=== PATIENT | male | born 1990 | race Caucasian/White ===

== ENCOUNTER 2017-09-09 05:02 | Emergency (ER) | payer OTHER ==
[2017-09-09 05:18] VITALS: BP 154/74; PULSE 64; TEMP 98.3; BMI 29.5
[2017-09-09] MEDS ORDERED: IBUPROFEN 400 MG TABLET (FP) PO ONE ×2 (05:41→05:48)
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
== END 2017-09-09 06:07 | disposition home or self-care (01) ==
LOC: JER 05:02
DX: S33.9XXA Sprain of unspecified parts of lumbar spine and pelvis, initial encounter (principal); Y35.891A Legal intervention involving other specified means, law enforcement official injured, initial encounter; Y93.89 Activity, other specified; Y92.9 Unspecified place or not applicable; Y99.0 Civilian activity done for income or pay
CPT/HCPCS: 99281-25

== ENCOUNTER 2018-04-23 03:44 | Emergency (ER) | payer OTHER ==
[2018-04-23 04:28] VITALS: BP 127/73; PULSE 89; TEMP 98.4; BMI 30.7
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
== END 2018-04-23 04:57 | disposition home or self-care (01) ==
LOC: JER 03:44
DX: S60.812A Abrasion of left wrist, initial encounter (principal); S50.812A Abrasion of left forearm, initial encounter; Y35.811A Legal intervention involving manhandling, law enforcement official injured, initial encounter; Y93.89 Activity, other specified; Y92.89 Other specified places as the place of occurrence of the external cause; Y99.0 Civilian activity done for income or pay
CPT/HCPCS: 99281-25

== ENCOUNTER 2018-08-01 12:39 | Emergency (ER) | payer OTHER ==
[2018-08-01 12:57] VITALS: BP 151/73; PULSE 82; TEMP 97.8; BMI 32.1
[2018-08-01] MEDS ORDERED: KETOROLAC TROMETHAMINE 60 MG/2 ML VIAL IM ONE (13:38)
[2018-08-01] MEDS ORDERED: KETOROLAC TROMETHAMINE 60 MG/2 ML VIAL ONE (13:38)
--- NOTE | 2018-08-01 14:00 | PDOC ---
History of Present Illness - General Chief Complaint: Back Pain Stated Complaint: Lower Back pain Time Seen by Provider: 08/01/18 13:05 History Source: Patient - History of Present Illness Occurred: reports: this morning Pain Location: reports: back Past History - Past Medical History Allergies/Adverse Reactions: Allergies Allergy/AdvReac Type Severity Reaction Status Date / Time No Known Allergies Allergy Verified 04/23/18 04:26 Home Medications: Ambulatory Orders Cyclobenzaprine HCl [Flexeril -] 10 mg PO TID #9 tablet 08/01/18 Ibuprofen [Motrin -] 800 mg PO Q6H #30 tablet 08/01/18 COPD: No Other medical history: herniated disc - Immunization History Immunization Up to Date: Yes - Suicide/Smoking/Psychosocial Hx Smoking History: Never smoked Have you smoked in the past 12 months: No Information on smoking cessation initiated: No Hx Alcohol Use: No Drug/Substance Use Hx: No Substance Use Type: None Review of Systems - Review of Systems Constitutional: No: Chills, Fever : No: Burning, Dysuria, Flank Pain, Hematuria Musculoskeletal: Yes: Back Pain Neurological: No: Numbness, Tingling, Weakness *Physical Exam - Vital Signs Last Vital Signs Temp Pulse Resp BP Pulse Ox 97.8 F 82 18 151/73 98 08/01/18 12:54 08/01/18 12:54 08/01/18 12:54 08/01/18 12:54 08/01/18 12:54 - Physical Exam General Appearance: Yes: Appropriately Dressed, Mild Distress HEENT: positive: Normal Voice Neck: positive: Supple Respiratory/Chest: negative: Respiratory Distress Gastrointestinal/Abdominal: positive: Soft. negative: Tender Musculoskeletal: negative: CVA Tenderness, Vertebral Tenderness Extremity: positive: Normal Inspection Integumentary: positive: Dry, Warm Neurologic: positive: Fully Oriented, Alert, Normal Mood/Affect Moderate Sedation - Procedure Monitoring Vital Signs: Procedure Monitoring Vital Signs Temperature 97.8 F 08/01/18 12:54 Pulse Rate 82 08/01/18 12:54 Respiratory Rate 18 08/01/18 12:54 Blood Pressure 151/73 08/01/18 12:54 O2 Sat by Pulse Oximetry (%) 98 08/01/18 12:54 ED Treatment Course - Medications Given in the ED: ED Medications Discontinued Medications Generic Name Dose Route Start Last Admin Trade Name Freq PRN Reason Stop Dose Admin Ketorolac Tromethamine 60 mg 08/01/18 13:38 08/01/18 13:41 Toradol Injection - IM 08/01/18 13:39 60 mg ONCE ONE Administration Medical Decision Making - Medical Decision Making 08/01/18 13:48 27-year-old male, history of multiple herniated disks to lumbar spine, here with non-radiating left lower back pain that started while at work today as [employer]. States pain started after he lifted a heavy bin. Unable to describe pain, 8/10 and worse when he stands up. No radiation and no lower extremity weakness, saddle anesthesia or bowel or bladder incontinence see exam M/l back strain in setting of heavy lifting at work No red flags on exam -dc w/ pain control and f/u 08/01/18 14:01 *DC/Admit/Observation/Transfer Diagnosis at time of Disposition: Low back sprain Qualifiers: Encounter type: initial encounter Qualified Code(s): S33.5XXA - Sprain of ligaments of lumbar spine, initial encounter - Discharge Dispostion Disposition: HOME Condition at time of disposition: Improved - Prescriptions Prescriptions: Cyclobenzaprine HCl [Flexeril -] 10 mg PO TID #9 tablet Ibuprofen [Motrin -] 800 mg PO Q6H #30 tablet - Referrals - Patient Instructions Printed Discharge Instructions: Low Back Pain Additional Instructions: You m likely sustained a back strain. Take medications as needed and if pain persists, pPlease follow-up with your spinal specialist. - Post Discharge Activity Forms/Work/School Notes: Back to Work
== END 2018-08-01 13:53 | disposition home or self-care (01) ==
LOC: JERFT 12:39
PROC: 3E0233Z Introduction of Anti-inflammatory into Muscle, Percutaneous Approach (ICD-10-PCS; principal; 2018-08-01)
DX: S33.5XXA Sprain of ligaments of lumbar spine, initial encounter (principal); X50.9XXA Other and unspecified overexertion or strenuous movements or postures, initial encounter; Y93.89 Activity, other specified; Y92.89 Other specified places as the place of occurrence of the external cause; Y99.0 Civilian activity done for income or pay
CPT/HCPCS: 99281-25

== ENCOUNTER 2020-07-25 12:18 | Emergency (ER) | payer BC | END 2020-07-25 12:31 | disposition home or self-care (01) | LOC: JVIRT 12:18 | DX: Z20.822 Contact with and (suspected) exposure to COVID-19 (principal) | CPT/HCPCS: C9803; G2012-GT; U0003 ==

== ENCOUNTER 2020-09-15 18:20 | Emergency (ER) | payer BC, OTHER ==
[2020-09-15 18:27] VITALS: BP 130/72; PULSE 67; TEMP 98.6; BMI 31.4
== END 2020-09-15 19:00 | disposition home or self-care (01) ==
LOC: FER 18:20
DX: R07.89 Other chest pain (principal); M25.561 Pain in right knee; Z00.00 Encounter for general adult medical examination without abnormal findings
CPT/HCPCS: 93005; 99283-25